=== PATIENT | male | born 1940 | race Caucasian/White ===

== ENCOUNTER 2018-08-03 10:05 | Outpatient (CLI) | payer MEDICARE, OTHER | END 2018-08-03 10:06 | disposition home or self-care (01) | LOC: SC 10:05 | PROVIDERS: ATTEND Internal Medicine Pulmonary Disease | DX: G47.10 Hypersomnia, unspecified (principal); G47.8 Other sleep disorders; R06.83 Snoring | CPT/HCPCS: 99203; G0463; 99212 ==

== ENCOUNTER 2018-08-11 20:31 | Outpatient (CLI) | payer MEDICARE, OTHER | END 2018-08-11 20:32 | disposition home or self-care (01) | LOC: SC 20:31 | PROVIDERS: ATTEND Internal Medicine Pulmonary Disease | DX: G47.33 Obstructive sleep apnea (adult) (pediatric) (principal); G47.61 Periodic limb movement disorder | CPT/HCPCS: 95810 ==

== ENCOUNTER 2018-08-17 10:23 | Outpatient (CLI) | payer MEDICARE, OTHER | END 2018-08-17 10:24 | disposition home or self-care (01) | LOC: SC 10:23 | PROVIDERS: ATTEND Internal Medicine Pulmonary Disease | DX: G47.33 Obstructive sleep apnea (adult) (pediatric) (principal) | CPT/HCPCS: 99213; G0463; 99212 ==

== ENCOUNTER 2018-09-15 20:30 | Outpatient (CLI) | payer MEDICARE, OTHER | END 2018-09-15 20:31 | disposition home or self-care (01) | LOC: SC 20:30 | PROVIDERS: ATTEND Internal Medicine Pulmonary Disease | DX: G47.33 Obstructive sleep apnea (adult) (pediatric) (principal); G47.61 Periodic limb movement disorder | CPT/HCPCS: 95811 ==

== ENCOUNTER 2018-09-22 11:27 | Outpatient (CLI) | payer MEDICARE, OTHER ==
--- NOTE | 2018-09-22 12:58 | CONSULTATION NOTE ---
Information from patient questionnaire entered by Sendy Fitch. I have reviewed and concur with the information entered by Sendy Fitch. This document represents the service I personally performed and the decisions made by me, Abi Sweeney MD, [facility]. - History of Present Illness HPI: Mr. Manning returns with his for follow up of the sleep study (a manual CPAP titration study) he had on 09/15/2018. The polysomnography showed that CPAP was initiated at 4 cmH2O and titrated up to CPAP at 13 cmH2O. CPAP at 9 cmH2O appeared to be optimal (AHI of 3.0 per hour on the pressure). There was supine REM sleep on the pressure. Oxygen saturation was mildly low. Lower CPAP settings appeared adequate as well. The patient tolerated positive airway pressure therapy well. The patients sleep efficiency was slightly reduced due to a prolonged awakening in the middle of the night. The sleep architecture was abnormal for sleep fragmentation and reduced amount of time spent in slow wave sleep (N3). There was severe periodic limb movement of sleep contributing to the sleep fragmentation. Cardiac rhythm was normal sinus rhythm without significant arrhythmia (58 - 85). No abnormal behavior (parasomnia) observed during the night. Interface used was Respironics Nuance nasal pillows. The patient was informed of these findings. The patient has not yet been started on the positive airway pressure therapy. Initial [place] Sleepiness Scale score: 13 Current [place] Sleepiness Scale score: 12 - Allergies/Medications Allergies and home medications reviewed: Yes - Review of Systems Review of systems same as previous: Yes - Impression 1. Obstructive Sleep Apnea-Hypopnea Syndrome, severe, adequately controlled with CPAP of 9 cmH2O. Based on the titration study, I will prescribe him an autoCPAP set between 6 and 10 cmH2O. I anticipated good treatment compliance. - Plan 1. Prescription made for an autoCPAP, heated humidifier, and related supplies. 2. Attempt to lose some weight. 3. Return for follow up in one year. This visit is time-based and I spent 15 minutes with the patient and more than 50% of the time was spent counseling the patient.
== END 2018-09-22 11:28 | disposition home or self-care (01) ==
LOC: SC 11:27
PROVIDERS: ATTEND Internal Medicine Pulmonary Disease
DX: G47.33 Obstructive sleep apnea (adult) (pediatric) (principal)
CPT/HCPCS: 99213; G0463; 99212

== ENCOUNTER 2018-11-24 09:26 | Outpatient (CLI) | payer MEDICARE, OTHER ==
--- NOTE | 2018-11-24 10:03 | SLEEP CARE CONSULTATION ---
Information from patient questionnaire entered by Sendy Fitch. I have reviewed and concur with the information entered by Sendy Fitch. This document represents the service I personally performed and the decisions made by me, Abi Sweeney MD, [facility]. History of Present Illness Previous diagnosis: Severe, Obstructive Sleep Apnea-Hypopnea Syndrome AHI: 54.5 Reason for CPAP/BiPAP follow up: first compliance Equipment type: CPAP Equipment obtained from: [facility] Mask brand: Respironics Prior sleep studies: Yes Year and Where: 2018 [facility] additional information: HPI: Mr. Manning returned today for follow up of nasal CPAP therapy. He was diagnosed to have severe obstructive sleep apnea-hypopnea syndrome. The patient wears a Respironics DreamWear nasal cushion mask. He reports using the device nightly and all through the night. The compliance report shows usage in 30 nights out of the past 30 nights, averaging 7.5 hours a night. He complained of no particular problem with the device such as soreness on the face, dry nose, epistaxis, nasal congestion or headache. He thinks that the pressure of 6 10 cmH2O is comfortable. On the CPAP therapy he notices improvement in his sleep quality, and that he wakes up feeling fresher in the morning and more awake/alert during the day. His notices no snore at all. The average residual AHI is 8.2; and average time in large leak per day is 8 minutes. The 90th percentile pressure is 8.8 cmH2O CPAP Compliance Data - Data Reviewed with Patient Average duration of nightly device use: 7h 28m Compliance rate %: 100 Current pressure setting (cmH2O): 6-10 Humidity settin Heated hose settin Subjective Current pressure setting perceived as: comfortable Initial [place] Sleepiness Scale score: 13 Current [place] Sleepiness Scale score: 10 Allergies and Home Medications Drug allergies reviewed: Yes Home medication list reviewed: Yes Review of Systems Review of systems same as previous: Yes Physical Exam Weight: 224 lb Impression and Plan IMPRESSION: 1. Obstructive Sleep Apnea-Hypopnea Syndrome, severe, with the patient doing well on nasal CPAP therapy. He has excellent compliance and significant clinical improvement. The current pressure appears slightly ineffective but comfortable. Overall, he is very satisfied with treatment and plans to continue with it long-term. Because the residual AHI is slightly high, I will raise the pressure range a little. PLAN: 1. Continue with autoCPAP set 1t 8 - 12 cmH2O. 2. Try other masks and nasal pillows, e.g. ResMed N30i mask, [employer] Brevida nasal pillows, and Respironics DreamWear Wisp nasal mask. 3. Return in one year for follow up or earlier if there is any problem with the treatment. I spent 100% of this 15 minute visit face to face with the patient with greater than 50% of this was spent time counseling the patient and coordination of care.
== END 2018-11-24 09:27 | disposition home or self-care (01) ==
LOC: SC 09:26
PROVIDERS: ATTEND Internal Medicine Pulmonary Disease
DX: G47.33 Obstructive sleep apnea (adult) (pediatric) (principal)
CPT/HCPCS: 99213; G0463; 99212

== ENCOUNTER 2020-04-07 09:15 | Outpatient (CLI) | payer MEDICARE, OTHER | END 2020-04-07 23:59 | disposition home or self-care (01) | LOC: COV 09:15 | PROVIDERS: ATTEND Family Medicine | DX: Z20.822 Contact with and (suspected) exposure to COVID-19 (principal) ==

== ENCOUNTER 2020-12-04 11:10 | Outpatient (CLI) | payer MEDICARE, OTHER ==
[2020-12-04 11:31] VITALS: BP 124/62
--- NOTE | 2020-12-04 11:31 | SLEEP CARE CONSULTATION ---
Information from patient questionnaire entered by Sendy Fitch. I have reviewed and concur with the information entered by Sendy Fitch. This document represents the service I personally performed and the decisions made by me, Abi Sweeney MD, [facility]. History of Present Illness Service Date and Time: 12/04/2020 1110 Previous diagnosis: Severe, Obstructive Sleep Apnea-Hypopnea Syndrome AHI: 54.5 Reason for follow up: annual Equipment type: CPAP Prior sleep studies: Yes Year and Where: 2018 [facility] Type of Sleep Study: Polysomnography HPI additional information: Mr. Manning returned today for annual follow up of nasal CPAP therapy. He was diagnosed to have severe obstructive sleep apnea-hypopnea syndrome. The patient wears a ResMed N30i mask. He gets his supplies from [employer] in [place]. He reports using the device nightly and all through the night. The compliance report shows usage in 177 nights out of the past 180 nights, averaging 7.5 hours a night. He complained of no particular problem with the device such as soreness on the face, dry nose, epistaxis, nasal congestion or headache. He thinks that the pressure of 8 10 cmH2O is comfortable. On the CPAP therapy he notices improvement in his sleep quality, and that he wakes up feeling fresher in the morning and more awake/alert during the day. [place] Sleepiness Scale score is 8. His notices no snore at all. The average residual AHI is 2.3 (was 8.2); and average time in large leak per day is 1 minute. The 90th percentile pressure is 9 cmH2O. Sleep Study - Results Type of Sleep Study: Polysomnography Prior sleep studies: Yes Year and Where: 2018 [facility] CPAP Compliance Data - Data Reviewed with Patient Average duration of nightly device use: 6 hours 57 minutes Compliance rate %: 97.8 Current pressure setting (cmH2O): 8-12 Heated hose settin Average residual AHI: 2.3 Average large leak: 1 minute 49 seconds Subjective Initial [place] Sleepiness Scale score: 13 Allergies and Home Medications Drug allergies reviewed: Yes Home medication list reviewed: Yes Review of Systems Review of systems same as previous: Yes Physical Exam Blood Pressure: 124/62 Cuff size: regular Heart Rate: 71 O2 Saturation: 98 Weight: 235 lb Impression and Plan IMPRESSION: 1. Obstructive Sleep Apnea-Hypopnea Syndrome, severe, with the patient continuing to do well on nasal CPAP therapy. He has excellent compliance and significant clinical improvement. The current pressure appears effective and comfortable. Overall, he is very satisfied with treatment and plans to continue with it long-term. In regards to the recall on all [employer] DreamStation devices, we discussed the risks and benefits of stopping versus continuing to use the device. In severe cases, it appears the benefits outweigh the risks and it is reasonable to continue until the replace part or machine becomes available. Symptoms that could be related to the recalled sound abatement foam piece are headache, nausea, chest tightness, and upper airway irritation. The patients should also look for debris in the air outlet, water reservoir, and hose. If found, the device should not be used. In [id number] cases, the patients should refrain from using the device. The patient has already registered his device with [employer] and is waiting for the replacement. PLAN: 1. Continue with autoCPAP set 1t 8 - 12 cmH2O. 2. Return in one year for follow up or earlier if there is any problem with the treatment. Follow up with Sleep Care in: 1 year Visit Type: In Office Time Spent with Patient (minutes): 15 Provider Statement: I spent 100% of the Face to Face Visit with the patient with greater than 50% spent counseling the patient and coordination of care.
== END 2020-12-04 11:11 | disposition home or self-care (01) ==
LOC: SC 11:10
PROVIDERS: ATTEND Internal Medicine Pulmonary Disease
DX: G47.33 Obstructive sleep apnea (adult) (pediatric) (principal)
CPT/HCPCS: 99212; G0463

== ENCOUNTER 2022-03-04 09:59 | Outpatient (CLI) | payer MEDICARE, OTHER ==
[2022-03-04 11:16] VITALS: BP 100/58
--- NOTE | 2022-03-04 11:16 | SLEEP CARE CONSULTATION ---
Information from patient questionnaire entered by Anirudh Greer. I have reviewed and concur with the information entered by Anirudh Greer. This document represents the service I personally performed and the decisions made by me, Abi Sweeney MD, [facility]. History of Present Illness Service Date and Time: 03/04/2022 0959 Previous diagnosis: Severe, Obstructive Sleep Apnea-Hypopnea Syndrome AHI: 54.5 Reason for follow up: annual (LAST SEEN 11/2020) Equipment type: CPAP (DREAM STATION) Prior sleep studies: Yes Year and Where: 2018 [facility] Type of Sleep Study: Polysomnography HPI additional information: Mr. Manning returned today for annual follow up of nasal CPAP therapy. He was diagnosed to have severe obstructive sleep apnea-hypopnea syndrome. The patient wears a ResMed N30i mask. He gets his supplies from [employer] He got a replacement machine (another [employer] Respironics DreamStation 1 autoCPAP) in November. He reports using the device nightly and all through the night. The compliance report shows usage in 177 nights out of the past 180 nights, averaging 7.2 hours a night. He complained of no particular problem with the device such as soreness on the face, dry nose, epistaxis, nasal congestion or headache. He thinks that the pressure of 8 12 cmH2O is comfortable. On the CPAP therapy he notices improvement in his sleep quality, and that he wakes up feeling fresher in the morning and more awake/alert during the day. [place] Sleepiness Scale score is 8. His notices no snore at all. The average residual AHI is 2.8 (was 2.2); and average time in large leak per day is 12 minutes. The 90th percentile pressure is 9 cmH 2O. Sleep Study - Results Type of Sleep Study: Polysomnography Prior sleep studies: Yes Year and Where: 2018 [facility] CPAP Compliance Data - Data Reviewed with Patient Average duration of nightly device use: 7HRS 10MIN 51SEC Compliance rate %: 98.3 (09/01/21-02/27/22) Current pressure setting (cmH2O): 8-12 Average residual AHI: 2.8 Subjective Initial [place] Sleepiness Scale score: 13 Current [place] Sleepiness Scale score: 8 (03/04/22) Allergies and Home Medications Drug allergies reviewed: Yes Home medication list reviewed: Yes Review of Systems Review of systems same as previous: Yes Physical Exam Vital signs obtained and entered by: ANIRUDH Soriano MA Blood Pressure: 100/58 (LEFT ARM) Cuff size: regular Heart Rate: 57 O2 Saturation: 98 Height: 6 ft 3 in Weight: 240 lb Body Mass Index: 29.9 BMI Classification: Overweight Impression and Plan IMPRESSION: 1. Obstructive Sleep Apnea-Hypopnea Syndrome, severe, with the patient continuing to do well on nasal CPAP therapy. He has excellent compliance and significant clinical improvement. The current pressure appears effective and comfortable. Overall, he is very satisfied with treatment and plans to continue with it long-term. No adjustment is necessary today. PLAN: 1. Continue with autoCPAP set 1t 8 - 12 cmH2O. 2. Return in one year for follow up or earlier if there is any problem with the treatment. He will be eligible for a new machine in September of next year. Adjust device pressure to (cmH2O): 8-12 Follow up with Sleep Care in: 1 year Visit Type: In Office Time Spent with Patient (minutes): 15 Provider Statement: I spent 100% of the Face to Face Visit with the patient with greater than 50% spent counseling the patient and coordination of care.
== END 2022-03-04 10:00 | disposition home or self-care (01) ==
LOC: SC 09:59
PROVIDERS: ATTEND Internal Medicine Pulmonary Disease
DX: G47.33 Obstructive sleep apnea (adult) (pediatric) (principal)
CPT/HCPCS: 99212; G0463

== ENCOUNTER 2023-03-28 08:00 | Outpatient (CLI) | payer MEDICARE, OTHER | END 2023-03-28 08:01 | disposition home or self-care (01) | LOC: LAB.N 08:00 | PROVIDERS: ATTEND Family Medicine | DX: U07.1 COVID-19 (principal) ==

== ENCOUNTER 2023-03-28 10:00 | Outpatient (CLI) | payer MEDICARE, OTHER ==
--- NOTE | 2023-03-28 16:35 | XRAY Report ---
PROCEDURE: Chest 2V INDICATIONS: SOB TECHNIQUE: 2 views of the chest were acquired. COMPARISON: None. FINDINGS: Surgical changes and devices: None. Lungs and pleura: No pleural effusions or pneumothorax. Lungs are clear. Mediastinum: Mediastinal contours appear normal. Heart size is normal. Bones and chest wall: No suspicious bony lesions. Overlying soft tissues appear unremarkable. IMPRESSION: No acute cardiopulmonary process. Reviewed by: Ebenezer Ly MD on 03/28/2023 4:33 PM [facility] Approved by: Ebenezer Ly MD on 03/28/2023 4:33 PM [facility] Station ID: [id number]
== END 2023-03-28 10:15 | disposition home or self-care (01) ==
LOC: DI.N 10:00
PROVIDERS: ATTEND Family Medicine
DX: R06.02 Shortness of breath (principal); U07.1 COVID-19

== ENCOUNTER 2023-03-31 10:58 | Outpatient (CLI) | payer MEDICARE, OTHER ==
[2023-03-31 22:35] VITALS: BP 116/61; O2SAT 99
--- NOTE | 2023-03-31 22:35 | SLEEP CARE CONSULTATION ---
Information from patient questionnaire entered by Anirudh Greer. I have reviewed and concur with the information entered by Anirudh Greer. This document represents the service I personally performed and the decisions made by me, Abi Sweeney MD, [facility]. History of Present Illness Service Date and Time: 03/31/2023 1058 Previous diagnosis: Severe, Obstructive Sleep Apnea-Hypopnea Syndrome AHI: 54.5 Reason for follow up: annual (LAST SEEN 02/2022) Equipment type: CPAP (DREAM STATION) Prior sleep studies: Yes Year and Where: 2018 [facility] Type of Sleep Study: Polysomnography HPI additional information: Mr. Manning returned today for annual follow up of nasal CPAP therapy. He was diagnosed to have severe obstructive sleep apnea-hypopnea syndrome. The patient wears a ResMed N30i mask. He gets his supplies from [employer]. He got a replacement machine (another [employer] Respironics DreamStation 1 autoCPAP) in November. He reports using the device nightly and all through the night. The compliance report shows usage in 363 nights out of the past 365 nights, averaging 7.2 hours a night. He complained of no particular problem with the device such as soreness on the face, dry nose, epistaxis, nasal congestion or headache. He thinks that the pressure of 8 12 cmH2O is comfortable. On the CPAP therapy he notices improvement in his sleep quality, and that he wakes up feeling fresher in the morning and more awake/alert during the day. [place] Sleepiness Scale score is 8. His notices no snore at all (but she is hard of hearing). The average residual AHI is 2.8 (was 2.2); and average time in large leak per day is 35 minutes. The 90th percentile pressure is 9 cmH2O. Sleep Study - Results Type of Sleep Study: Polysomnography Prior sleep studies: Yes Year and Where: 2018 [facility] CPAP Compliance Data - Data Reviewed with Patient Average duration of nightly device use: 7HRS 13MINS Compliance rate %: 99.2 (03/28/22-03/27/23) Current pressure setting (cmH2O): 8-12 Average residual AHI: 2.8 Subjective Initial [place] Sleepiness Scale score: 13 Current [place] Sleepiness Scale score: 11 (03/31/23) Allergies and Home Medications Drug allergies reviewed: Yes Home medication list reviewed: Yes Review of Systems Review of systems same as previous: Yes (RECOVERING FROM COVID) Physical Exam Vital signs obtained and entered by: ANIRUDH Soriano MA Blood Pressure: 116/61 (LEFT ARM) Cuff size: regular Heart Rate: 54 O2 Saturation: 99 Height: 6 ft 3 in Weight: 237 lb 14.4 oz Body Mass Index: 29.7 BMI Classification: Overweight Impression and Plan IMPRESSION: 1. Obstructive Sleep Apnea-Hypopnea Syndrome, severe, with the patient continuing to do well on nasal CPAP therapy. He has excellent compliance and significant clinical improvement. The current pressure appears effective and comfortable. Overall, he is very satisfied with treatment and plans to continue with it long-term. No adjustment is necessary today. PLAN: 1. Continue with autoCPAP set 1t 8 - 12 cmH2O. 2. Return in one year for a follow-up in 8 months when he is eligible for a new machine. Counseling Topics: Weight control Follow up with Sleep Care in: other (8 months) Visit Type: In Office Time Spent with Patient (minutes): 15 Provider Statement: I spent 100% of the Face to Face Visit with the patient with greater than 50% spent counseling the patient and coordination of care.
== END 2023-03-31 10:59 | disposition home or self-care (01) ==
LOC: SC 10:58
PROVIDERS: ATTEND Internal Medicine Pulmonary Disease
DX: G47.33 Obstructive sleep apnea (adult) (pediatric) (principal); E66.3 Overweight; Z68.29 Body mass index [BMI] 29.0-29.9, adult
CPT/HCPCS: 99212; G0463